=== PATIENT | female | born 1980 | race American Indian/Alaskan Native ===

== ENCOUNTER 2019-12-11 20:52 | Emergency (ER) | payer MEDICAID ==
--- NOTE | 2019-12-11 21:29 | EDM.PDOC ---
<AwaJuan Antonio A - Last Filed: 12/12/19 00:40> ED HPI GENERAL MEDICAL PROBLEM - General Chief Complaint: Chest Pain Stated Complaint: chest pain Time Seen by Provider: 12/11/19 21:03 - Related Data Allergies Allergy/AdvReac Type Severity Reaction Status Date / Time No Known Allergies Allergy Verified 12/11/19 21:25 Course - Vital Signs Last Recorded V/S: Last Vital Signs Temp 96.4 F L 12/11/19 21:05 Pulse 72 12/11/19 21:05 Resp 18 12/11/19 21:05 BP 119/77 12/11/19 21:05 Pulse Ox 99 12/11/19 21:05 - Orders/Labs/Meds Orders: Active Orders 24 hr Category Date Time Status EKG Documentation Completion [RC] STAT Care 12/11/19 21:03 Active Labs: Laboratory Tests 12/11/19 12/11/19 12/11/19 Range/Units 21:32 21:32 21:32 WBC 6.18 (3.98-10.04) K/mm3 RBC 4.16 (3.98-5.22) M/mm3 Hgb 11.7 (11.2-15.7) gm/dl Hct 35.8 (34.1-44.9) % MCV 86.1 (79.4-94.8) fl MCH 28.1 (25.6-32.2) pg MCHC 32.7 (32.2-35.5) g/dl RDW Std Deviation 41.1 (36.4-46.3) fL Plt Count 345 (182-369) K/mm3 MPV 9.5 (9.4-12.3) fl Neut % (Auto) 50.5 (34.0-71.1) % Lymph % (Auto) 31.4 (19.3-51.7) % Sherman % (Auto) 8.9 (4.7-12.5) % Eos % (Auto) 8.4 H (0.7-5.8) Baso % (Auto) 0.6 (0.1-1.2) % Neut # (Auto) 3.12 (1.56-6.13) K/mm3 Lymph # (Auto) 1.94 (1.18-3.74) K/mm3 Sherman # (Auto) 0.55 H (0.24-0.36) K/mm3 Eos # (Auto) 0.52 H (0.04-0.36) K/mm3 Baso # (Auto) 0.04 (0.01-0.08) K/mm3 D-Dimer, Quantitative 0.60 H (0.19-0.50) mg/L Sodium 139 (136-145) mEq/L Potassium 3.8 (3.5-5.1) mEq/L Chloride 105 (98-107) mEq/L Carbon Dioxide 26 (21-32) mEq/L Anion Gap 11.8 (5-15) BUN 12 (7-18) mg/dL Creatinine 1.0 (0.55-1.02) mg/dL Est Cr Clr Drug Dosing 64.58 mL/min Estimated GFR (MDRD) > 60 (>60) mL/min BUN/Creatinine Ratio 12.0 L (14-18) Glucose 116 H (74-106) mg/dL Calcium 8.0 L (8.5-10.1) mg/dL Total Bilirubin 0.3 (0.2-1.0) mg/dL AST 29 (15-37) U/L ALT 51 (14-59) U/L Alkaline Phosphatase 57 (46-116) U/L Troponin I < 0.017 (0.00-0.056) ng/mL Total Protein 7.2 (6.4-8.2) g/dl Albumin 3.3 L (3.4-5.0) g/dl Globulin 3.9 gm/dL Albumin/Globulin Ratio 0.9 L (1-2) - Re-Assessments/Exams Free Text/Narrative Re-Assessment/Exam: 12/11/19 23:45 CT angiogram of the chest is read by [facility] as: 1. No acute findings. 2. No evidence of pulmonary arterial embolism. 3. Clear lung quevedo bilaterally. 4. Unremarkable pleural space. The patient will be discharged home. Departure - Departure Time of Disposition: 23:46 Disposition: Home, Self-Care 01 Clinical Impression: Atypical chest pain Instructions: Nonspecific Chest Pain, Adult, [id number] Referrals: PCP,None [Primary Care Provider] - Forms: ED Department Discharge Additional Instructions: You were seen in the emergency department today for a brief episode of left- sided chest pain. Your work-up included blood work, an EKG, and a CT angiogram of your chest. Your work-up was found to be normal. You did not have a heart attack and you do not have a blood clot in your lungs. It is likely that your pain was musculoskeletal in nature. If the pain should return or you develop any new symptoms of concern, please do not hesitate to return to the emergency department. Sepsis Event Note - Focused Exam Date Exam was Performed: 12/12/19 Time Exam was Performed: 00:40 - My Orders Last 24 Hours: My Active Orders 12/11/19 21:03 EKG Documentation Completion [RC] STAT - Assessment/Plan Last 24 Hours: My Active Orders 12/11/19 21:03 EKG Documentation Completion [RC] STAT <Rosi Shields - Last Filed: 12/12/19 16:00> ED HPI GENERAL MEDICAL PROBLEM - General Source of Information: Reports: Patient History Limitations: Reports: No Limitations - History of Present Illness INITIAL COMMENTS - FREE TEXT/NARRATIVE: Patient is a 39-year-old female who presents to the ER from the [facility] with complaints of an episode of chest pain around 1600 this afternoon. Patient states that around that time she stood up and had a sharp pain localized within her left chest. She states that the pain returned each time she took a deep breath and then it resolved abruptly. She states the entire episode lasted "a few seconds ". She has had no recurrence of chest pain since that time. She denies any shortness of breath or pain at the time of exam. She states that she did have a "small heart attack "at about 24 years of age but has had no further cardiac events. She has no history of blood clots that she is aware of. Past Medical History Psychiatric History: Reports: Addiction, Anxiety, PTSD - Past Surgical History GI Surgical History: Reports: Other (See Below) Other GI Surgeries/Procedures: liver surgery Female Surgical History: Reports: Section Social & Family History - Tobacco Use Smoking Status *Q: Former Smoker Used Tobacco, but Quit: Yes Month/Year Tobacco Last Used: 07/2019 - Caffeine Use Caffeine Use: Reports: Coffee, Soda - Recreational Drug Use Recreational Drug Use: Yes Recreational Drug Type: Reports: Amphetamines (Speed), Inhalants (Glues, Solvents, Aerosols), Marijuana/Hashish ED ROS GENERAL - Review of Systems Review Of Systems: Comprehensive ROS is negative, except as noted in HPI. ED EXAM, GENERAL - Physical Exam Exam: See Below Exam Limited By: No Limitations General Appearance: Alert, WD/WN, No Apparent Distress Respiratory/Chest: No Respiratory Distress, Lungs Clear, Normal Breath Sounds, No Accessory Muscle Use, Chest Non-Tender Cardiovascular: Normal Peripheral Pulses, Regular Rate, Rhythm, No Edema, No Gallop, No JVD, No Murmur, No Rub Neurological: Alert, Oriented, CN II-XII Intact, Normal Cognition, Normal Gait, Normal Reflexes, No Motor/Sensory Deficits Psychiatric: Normal Affect, Normal Mood Skin Exam: Warm, Dry, Intact, Normal Color, No Rash EKG INTERPRETATION EKG Date: 12/11/19 Time: 18:06 Rhythm: NSR Rate (Beats/Min): 96 Hitchcock: Normal P-Wave: Present QRS: Normal ST-T: Normal QT: Normal Comparison: NA - No Prior EKG Course - Orders/Labs/Meds Labs: Laboratory Tests 12/11/19 12/11/19 12/11/19 Range/Units 21:32 21:32 21:32 WBC 6.18 (3.98-10.04) K/mm3 RBC 4.16 (3.98-5.22) M/mm3 Hgb 11.7 (11.2-15.7) gm/dl Hct 35.8 (34.1-44.9) % MCV 86.1 (79.4-94.8) fl MCH 28.1 (25.6-32.2) pg MCHC 32.7 (32.2-35.5) g/dl RDW Std Deviation 41.1 (36.4-46.3) fL Plt Count 345 (182-369) K/mm3 MPV 9.5 (9.4-12.3) fl Neut % (Auto) 50.5 (34.0-71.1) % Lymph % (Auto) 31.4 (19.3-51.7) % Sherman % (Auto) 8.9 (4.7-12.5) % Eos % (Auto) 8.4 H (0.7-5.8) Baso % (Auto) 0.6 (0.1-1.2) % Neut # (Auto) 3.12 (1.56-6.13) K/mm3 Lymph # (Auto) 1.94 (1.18-3.74) K/mm3 Sherman # (Auto) 0.55 H (0.24-0.36) K/mm3 Eos # (Auto) 0.52 H (0.04-0.36) K/mm3 Baso # (Auto) 0.04 (0.01-0.08) K/mm3 D-Dimer, Quantitative 0.60 H (0.19-0.50) mg/L Sodium 139 (136-145) mEq/L Potassium 3.8 (3.5-5.1) mEq/L Chloride 105 (98-107) mEq/L Carbon Dioxide 26 (21-32) mEq/L Anion Gap 11.8 (5-15) BUN 12 (7-18) mg/dL Creatinine 1.0 (0.55-1.02) mg/dL Est Cr Clr Drug Dosing 64.58 mL/min Estimated GFR (MDRD) > 60 (>60) mL/min BUN/Creatinine Ratio 12.0 L (14-18) Glucose 116 H (74-106) mg/dL Calcium 8.0 L (8.5-10.1) mg/dL Total Bilirubin 0.3 (0.2-1.0) mg/dL AST 29 (15-37) U/L ALT 51 (14-59) U/L Alkaline Phosphatase 57 (46-116) U/L Troponin I < 0.017 (0.00-0.056) ng/mL Total Protein 7.2 (6.4-8.2) g/dl Albumin 3.3 L (3.4-5.0) g/dl Globulin 3.9 gm/dL Albumin/Globulin Ratio 0.9 L (1-2) - Re-Assessments/Exams Free Text/Narrative Re-Assessment/Exam: 12/11/19 22:08 Hematology was significant for a d-dimer slightly elevated at 0.60. Was otherwise unremarkable. EKG was negative for any acute ischemic changes. I have ordered a CT angios to rule out PE. 12/11/19 22:[address] angio are pending. Case discussed with Dr. Billings. He will assume care of the patient. Departure - Departure Condition: Good Sepsis Event Note - Evaluation Sepsis Screening Result: No Definite Risk - Focused Exam Date Exam was Performed: 12/12/19 Time Exam was Performed: 16:00
--- NOTE | 2019-12-12 09:14 | CT ---
CT chest Technique: Multiple axial sections through the chest were obtained. Intravenous contrast was utilized. Study has been performed as a pulmonary angiogram protocol. Findings: Pulmonary arteries are well opacified. No filling defects are seen to indicate pulmonary embolism. Mediastinum and hilar regions appear within normal limits. No axillary adenopathy is seen. Visualized upper abdominal structures shows prior cholecystectomy with nothing acute being identified within the upper abdomen. Lungs show no pleural effusions. Small air cyst is noted within the left lung base measuring less than 1 cm in size. Lungs show no acute parenchymal change. Bone window settings were reviewed which appear within normal limits for the patient's age. Impression: 1. No findings of pulmonary embolism. 2. Other findings as noted above are felt to be incidental. 3. Nothing acute is appreciated. Diagnostic code #2 This report was dictated in MDT I agree with preliminary report from Yin, finalized on 12/12/19, 12:10 AM Central Daylight Time
== END 2019-12-12 00:13 | disposition home or self-care (01) ==
LOC: JD.ED 20:52
DX: R07.89 Other chest pain (principal); Z87.891 Personal history of nicotine dependence
CPT/HCPCS: 36415; 71275; 71275-26; 80053; 84484; 85025; 85379; 93005; 93010; 99284; 99285-25